=== PATIENT | male | born 1995 | race Caucasian/White ===

== ENCOUNTER 2021-02-21 05:30 | Emergency (ER) | payer OTHER ==
[2021-02-21] MEDS ORDERED: Ketorolac Tromethamine 30 MG/ML VIAL ONE ×2 (05:40→06:31)
[2021-02-21] MEDS ORDERED: Dexamethasone 10 MG/ML VIAL ONE (05:40)
== END 2021-02-21 07:12 | disposition home or self-care (01) ==
LOC: ERS 05:30
DX: M54.32 Sciatica, left side (principal)
CPT/HCPCS: 96372; 99283; J1100; J1885